=== PATIENT | male | born 1990 | race African-American/Black ===

== ENCOUNTER 2017-12-07 22:31 | Emergency (ER) | payer MEDICAID ==
[~2017-12-07] VITALS: Ht 188 cm; Wt 78.0 kg
[~2017-12-07 22:31] MED LIST: insulin
[2017-12-08 00:36] VITALS: BP 125/86
== END 2017-12-08 05:12 | disposition left against medical advice (07) ==
LOC: ER 22:31
DX: Z53.21 Procedure and treatment not carried out due to patient leaving prior to being seen by health care provider (principal); E11.9 Type 2 diabetes mellitus without complications